=== PATIENT | male | born 1970 | race Two or more races ===

== ENCOUNTER 2019-09-12 13:55 | Emergency (ER) | payer BC ==
--- NOTE | 2019-09-12 14:04 | PDOC ---
History of Present Illness - General Chief Complaint: Pain Stated Complaint: RT KNEE AND LEG SWELLING Time Seen by Provider: 09/12/19 14:03 Past History - Past Medical History Allergies/Adverse Reactions: Allergies Allergy/AdvReac Type Severity Reaction Status Date / Time No Known Allergies Allergy Verified 09/12/19 14:00 Home Medications: Ambulatory Orders Diclofenac Sodium [Voltaren -] 25 mg PO ASDIR 09/12/19
[2019-09-12 14:49] VITALS: BP 119/74; PULSE 63; TEMP 98.7; BMI 25.2
--- NOTE | 2019-09-12 15:24 | PDOC ---
Documentation entered by Nae Valencia SCRIBE, acting as scribe for Freya Henriquez MD. Freya Henriquez MD: This documentation has been prepared by the Erik loja Aiswarya, SCRIBE, under my direction and personally reviewed by me in its entirety. I confirm that the documentation accurately reflects all work, treatment, procedures, and medical decision making performed by me. History of Present Illness - General Chief Complaint: Pain Stated Complaint: RT KNEE AND LEG SWELLING Time Seen by Provider: 09/12/19 14:03 History Source: Patient Exam Limitations: No Limitations - History of Present Illness Initial Comments: 09/12/19 15:25 The patient is a 49 year old male, with no significant PMH, who presents to the emergency department with 1 week of right knee pain. The patient states pain is located to the anterior right knee that currently radiates to the posterior right knee and thigh with mild swelling. He reports he first notice the pain after his plane ride from [facility]. The patient states he went to see his doctor where he suggested it might be a possible DVT. The patient reports he went to Urgent Care today where they told him to report to the ER to get an ultrasound to rule out DVT. Patient mentions he is going to [place] today. The patient denies no pain or swelling to the calf. Denies any history of blood clots. Denies chest pain, shortness of breath, headache and dizziness.Denies fever, chills, nausea, vomit, diarrhea and constipation. Allergies: NKDA Past surgical history: Social history: No reported Past History - Past Medical History Allergies/Adverse Reactions: Allergies Allergy/AdvReac Type Severity Reaction Status Date / Time No Known Allergies Allergy Verified 09/12/19 14:00 Home Medications: Ambulatory Orders Diclofenac Sodium [Voltaren -] 25 mg PO ASDIR 09/12/19 COPD: No - Psycho Social/Smoking Cessation Hx Smoking History: Never smoked Have you smoked in the past 12 months: No Information on smoking cessation initiated: No Hx Alcohol Use: No Drug/Substance Use Hx: No Review of Systems - Review of Systems Able to Perform ROS?: Yes Comments:: 09/12/19 15:25 GENERAL/CONSTITUTIONAL: No fever or chills. No weakness. MUSCULOSKELETAL: +right knee pain. SKIN: No rash NEUROLOGIC: No headache, vertigo, loss of consciousness, or change in strength/ sensation. ENDOCRINE: No increased thirst. No abnormal weight change. HEMATOLOGIC/LYMPHATIC: No anemia, easy bleeding, or history of blood clots. ALLERGIC/IMMUNOLOGIC: No hives or skin allergy. *Physical Exam - Vital Signs Last Vital Signs Temp Pulse Resp BP Pulse Ox 98.7 F 63 20 119/74 100 09/12/19 14:00 09/12/19 14:00 09/12/19 14:00 09/12/19 14:00 09/12/19 14:00 - Physical Exam 09/12/19 15:26 GENERAL: Awake, alert, and fully oriented, in no acute distress EXTREMITIES:Full ROM of the right knee. Minimal tenderness to the tibial plateau. No tenderness, erythema, deformity or ecchymosis. SKIN: Warm, Dry, normal turgor, no rashes or lesions noted. ED Treatment Course - RADIOLOGY Radiology Studies Ordered: Category Date Time Status DUPLEX VASCUL US-1 LEG [US] Stat Ultrasound 09/12/19 14:10 Completed Discharge - Discharge Information Problems reviewed: Yes Clinical Impression/Diagnosis: Knee effusion, right Condition: Good Disposition: HOME - Follow up/Referral - Patient Discharge Instructions Patient Printed Discharge Instructions: DI for Knee Effusion Additional Instructions: you came to the ED for knee and leg pain. We did an ultrasound that showed that you do not have a DVT, but does show some fluid in the joint. THis is most likely due to inflammation in the joint but can be caused by damage to the ligaments. You should follow up with your primary care physician, especially if you continue to have symptoms. Return to the ED for severe pain and swelling, fever, difficulty walking, other new or worsening symptoms. - Post Discharge Activity
== END 2019-09-12 15:31 | disposition home or self-care (01) ==
LOC: FER 13:55
DX: M25.461 Effusion, right knee (principal)
CPT/HCPCS: 93971-TC; 99282-25